=== PATIENT | female | born 1965 | race Caucasian/White ===

== ENCOUNTER 2023-11-15 01:49 | Emergency (ER) | payer SELFPAY ==
[2023-11-15 02:09] VITALS: BP 152/91
[2023-11-15] MEDS: TYLENOL 1000 MG PO (03:55)
--- NOTE | 2023-11-15 04:44 | ED.MUSCINJ ---
HPI-Injury
General
Chief Complaint: Fall
Source: patient
Exam Limitations: none
Time Seen by Provider: 11/15/23 03:57
Nursing documentation reviewed up to this point in time: agreed with
Travel History
Have you had any contact with someone who has COVID-19?: No
Do you have any symptoms of coronavirus? Fever > 100 degrees, chills, cough, shortness of breath, sore throat, loss of taste or smell, muscle aches, or headache?: No
History of Present Illness-Injury
Initial Injury comments:
58-year-old woman who works at [employer] home slipped and fell a little after midnight tonight while at work injuring her left lateral ankle and also bruising her right superior palm. She denies head injury, denies loss of consciousness,
denies neck or back pain.
She complains of moderate pain left lateral ankle with difficulty bearing weight. She denies weakness nor numbness. No chest pain no shortness of breath, no abdominal pain, no headache no dizziness.
She has not taken anything for discomfort.
She takes no anticoagulants.
Prior history of bone graft to bilateral hands but no prior fractures.
Past History
Past History
ED Past Medical History: None; Negative Asthma, HTN, Hypercholesterolemia or NIDDM
ED Past Surgical History: Orthopedic
Social History
Tobacco: Non-smoker
Alcohol: None
Personal:
Living: with family
Employment: Employed
Family History
Family History: Other (Noncontributory)
Phy Exam
Physical Exam
Physical Exam:
TRAUMA EXAM:
VITAL SIGNS: Vital signs reviewed, cooperative
DISTRESS: No active disease
EYES: Pupils reactive, no orbital trauma
NOSE: No deformity or epistaxis
FACE AND SCALP: No scalp or facial trauma, external canals no blood
NECK: Supple nontender
BACK: Back nontender, pelvis stable to compression
RESPIRATORY: No distress, breath sounds normal, no tender chest wall
CARDIAC: No murmur, pulses equal and strong
ABDOMEN: Soft nontender bowel sounds normal
SKIN: Skin intact no bleeding, color normal
EXTREMITIES: There is moderate tenderness and mild soft tissue swelling lateral left ankle with moderately restricted range of motion of left ankle related to pain. There is no tenderness to the foot nor lower leg nor knee. Peripheral pulses are
full and equal bilaterally. The right anterior palm superior aspect has a 2 x 3 cm area of focal ecchymosis with minimal local tenderness to palpation. There is full digit and wrist range of motion without difficulty nor pain. Hand grasps are
equal bilaterally.
NEUROLOGICAL: Alert, oriented, no motor deficits
PSYCH: Mood affect normal
Injury Course
Orders/Labs/Results
Orders:
Orders
11/15/23 03:06
CR Ankle - Left Min 3 Views Urgent
Comment:
Reason For Exam: fell, lower leg and ankle very painful and swollen
Tib/Fib, Left 2 View [CR Leg Tibia/fibula Left 2 Vw] Urgent
Comment:
Reason For Exam: fell, lower leg and ankle very painful and swollen
11/15/23 03:49
Acetaminophen [Tylenol] 1,000 mg PO NOW STA
11/15/23 04:43
Ketorolac [Toradol] 60 mg IM NOW STA
11/15/23 05:07
Crutches-Treatment ONCE
Splint [Braces/Immobilizers] As Directed
Type of Brace/Immobilizer: Splint
Instructions: posterior short leg splint
Procedures
Splint Check
Splint checked by provider?: Yes
Circulation/Movement/Sensation post splint application: brisk cap refill and full sensation
MDM/Problems Addressed
Differential Diagnosis Includes:
Concern for left ankle fracture.
Contusion right superior prompt no significant tenderness and full range of motion, I do not suspect wrist nor hand fracture.
Patient has been given Tylenol for pain, will give an IM dose of Toradol.
Left ankle x-ray showed nondisplaced fracture of the distal fibula. Ankle mortise intact.
Patient will be placed in a posterior OCL splint and provided with crutches for nonweightbearing.
A prescription for ibuprofen for pain as well as a few hydrocodone for pain has been provided.
Recommend follow-up with orthopedics and as this is a work-related injury recommend she touch base with her employer as they may contract with a specific specialist.
.
*Radiology
Radiology exam reviewed: preliminary read by ED provider (Left tib-fib, left ankle x-ray showed nondisplaced fracture distal fibula.)
*Pulse Oximetry
Patient hypoxic: no
*Critical Care Note
Total Time (30-74mins, 75-104mins- exclusive of procedures): Not Applicable
Update Note
Update Note:
OCL splint applied by nurse and technology integration specialist. Foot/ankle maintained in excellent alignment.
Toes are warm with rapid capillary refill and sensation intact.
Patient has been fitted with crutches and has demonstrated proper use of crutches.
Discharge to home with recommendations to touch base with her employer regarding work related injury.
She has been provided information for orthopedics for follow-up.
ED Attending Note
-
Portions of this chart may have been created with voice recognition software.� Occasional wrong word or��sound alike� substitutions may have occurred due to the inherent limitations of voice recognition software.
Discharge Plan
Departure
Patient Disposition: Home (Routine Discharge)
Date of Disposition: 11/15/23
Time of Disposition: 04:45
Patient with high blood pressure during this ER visit?: Yes
Condition: Good
Discharge Problem:
Fracture of distal end of left fibula
Instructions: How to Use Crutches, Ankle Fracture (DC)
Prescriptions:
New
ibuprofen 800 mg tablet
800 mg PO QIDPRN PRN (Reason: pain, fever) Qty: 30 0RF
hydrocodone-acetaminophen 5-300 mg tablet
1 tab PO Q8H PRN (Reason: moderate pain) Qty: 10 0RF
Referrals:
Kiana Carmona MD [Family Provider] -
Spencer Coleman MD [Active] - Call in 1-3 days for appt
Interventions
Interventions:
*Risk Screen - Suicide Last Done: 11/15/23 02:09
*General Assessment Last Done: 11/15/23 02:09
*Neglect/Abuse Screening Last Done: 11/15/23 03:22
ED- Fall Risk Assessment Last Done: 11/15/23 02:09
*ED COVID-19 Vaccine History Last Done: 11/15/23 02:09
*Nursing Disposition Last Done: 11/15/23 05:00
ED-Musculoskeletal Assessment Last Done: 11/15/23 03:10
ED- Neurological Assessment Last Done: 11/15/23 03:13
ED-Skin Assessment Last Done: 11/15/23 03:13
Discharge Date and Time
Discharge Date/Time: 11/15/23 05:20
[2023-11-15 05:00] VITALS: BP 138/67
[2023-11-15] MEDS: TORADOL 60 MG IM (05:05)
== END 2023-11-15 05:20 | disposition home or self-care (01) ==
LOC: EMR 01:49
PROVIDERS: EMERGENCY PHYSICIAN Emergency Medicine; FAMILY PHYSICIAN Internal Medicine
DX: S82.832A Other fracture of upper and lower end of left fibula, initial encounter for closed fracture (principal); S60.221A Contusion of right hand, initial encounter; W01.0XXA Fall on same level from slipping, tripping and stumbling without subsequent striking against object, initial encounter; Y99.0 Civilian activity done for income or pay
CPT/HCPCS: 99283; 29515; 96372; 73590; 73610